=== PATIENT | female | born 1940 | race Caucasian/White ===

== ENCOUNTER 2018-09-17 06:01 | Inpatient (IN) | payer OTHER ==
[2018-09-03 13:21] LABS: HEMATOCRIT 41.8 % (37.0-47.0); HEMOGLOBIN 13.9 gm/dL (12.0-15.0); MCH 31.2 pg (26.0-34.0); MCHC 33.2 g/dL (28.0-37.0); MCV 93.9 fL (80.0-100.0); RBC 4.46 mil/uL (4.20-5.00); RDW 13.5 % (10.5-14.5); URINE BILIRUBIN NEGATIVE (Negative); URINE BLOOD NEGATIVE (Negative); URINE CLARITY CLEAR; URINE COLOR YELLOW; URINE GLUCOSE-RANDOM* NEGATIVE (Negative); URINE KETONES NEGATIVE (Negative); URINE LEUKOCYTES-REFLEX 1+ (Negative); URINE NITRITE-REFLEX NEGATIVE (Negative); URINE PROTEIN (DIPSTICK) NEGATIVE (Negative); URINE UROBILINOGEN 0.2 E.U./dl (0.2-1.0); WBC 6.5 thou/uL (4.0-11.0)
[2018-09-03 13:28] LABS: CASTS None Seen /LPF (None Seen); MUCUS 4-6 Moderate strn/LPF (None Seen); SQUAMOUS 4-10 Moderate /LPF (0-3); URINE RBC 0-2 Rare /HPF (0-2); URINE WBC-REFLEX 0-5 Rare /HPF (0-5)
[2018-09-03 13:29] LABS: BACTERIA-REFLEX 1-9 Few /HPF (None Seen); CRYSTALS None Seen /LPF (None Seen)
[2018-09-03 13:39] LABS: ALBUMIN 3.7 g/dL (3.4-5.0); CALCIUM 9.2 mg/dL (8.5-10.1); CREATININE 0.7 mg/dL (0.6-1.0); POTASSIUM 3.7 mmol/L (3.5-5.1)
[2018-09-03 15:06] LABS: PROTIME 10.8 Seconds (9.3-11.4)
--- NOTE | 2018-09-04 09:38 | EKG ---
[address] [address] ELECTROCARDIOGRAM REPORT Name: ELISAZULY WINSTON Room #: [facility]#: [id number] ������������������ Admission: ������������������ Attend Phys: Portillo Huizar MD Discharge: ������������������ Date of : 44 Report #: [id number] ����������������������������������������������������������������� [id number] THIS REPORT FOR: //name// [facility] Test Date: 2018-09-03 Test Time: 13:13:18 Pat Name: ZULY JOHNSON Department: Room: Gender: F Business Objects Developer: tamika samaniego : 1940 Requested By: Portillo Huizar Order Number: [id number] MD: Angel Caputo Measurements Intervals [employer] Rate: 74 P: 55 IN: 245 QRS: 40 QRSD: 100 T: 27 QT: 415 QTc: 461 Interpretive Statements Sinus rhythm Prolonged IN interval Compared to ECG 03/21/2015 17:25:05 First degree AV block now present T-wave abnormality no longer present Electronically Signed On 09-04-2018 9:38:44 DAIRY ASSOCIATE by Angel Caputo [email or web address] ��������������������������������������������� <ELECTRONICALLY SIGNED> ���������������������������������������� By: Angel Caputo MD, [facility] ��������������������������������������������� 09/04/18 0938 12 12 Angel Caputo MD, [facility] /EPI
[~2018-09-17] VITALS: Ht 162.6 cm; Wt 86.2 kg
--- NOTE | ~2018-09-17 | O ---
[facility] [place] [address] OPERATIVE REPORT Name: ZULY JOHNSON Room #: 150-3 ADM IN M.R.#: [id number] Admission: 09/17/18 ������������������ Attend Phys: Portillo Huizar MD Discharge: ������������������ Date of : 42 Report #: [id number] THIS REPORT FOR: //name// CC: Emily Huizar DATE OF SERVICE: 09/17/2018 PREOPERATIVE DIAGNOSIS: Left hip osteoarthritis. POSTOPERATIVE DIAGNOSIS: Left hip osteoarthritis. PROCEDURE: Left total hip arthroplasty. SURGEON: Portillo Huizar MD. SALES REPRESENTATIVE DOOR TO DOOR: Alisia Birmingham PA-C. INDICATIONS FOR SALES REPRESENTATIVE DOOR TO DOOR: Throughout the case, extensive retraction and manipulation of the hip including dislocation and reduction was required. This was afforded to me by my hotel assistant general manager. ANESTHESIA: General endotracheal. IMPLANTS: [employer] size 9 high offset Synergy press fit stem, a size 50 R3 acetabular cup with one acetabular screw and a size 32 +0 cobalt chrome head. ESTIMATED BLOOD LOSS: 150 mL. COMPLICATIONS: None. SPECIMENS: None. CONDITION UPON LEAVING THE OPERATING ROOM: Stable. INDICATION FOR PROCEDURE: The patient is a 78-year-old female with severe left hip osteoarthritis. She had failed conservative measures for this and after discussion with her, she elected for left total hip arthroplasty. DESCRIPTION OF PROCEDURE: Risks, benefits, alternatives, complications were discussed in detail with the patient including but not limited to risk of anesthesia, risk of damage to nerves, arteries, blood vessels, risk for infection, bleeding, risk for continued hip pain, leg length discrepancy, instability and need for reoperation. Informed consent was obtained from the patient. Left hip was appropriately marked in the preoperative holding area. IV Ancef was given for preoperative antibiotics. She was brought to the [address] [address] OPERATIVE REPORT Name: ZULY JOHNSON Room #: 150-3 [facility] IN M.R.#: [id number] Admission: 09/17/18 ������������������ Attend Phys: Portillo Huizar MD Discharge: ������������������ Date of : 42 Report #: [id number] operating room and placed in the supine position on the operating room table. General endotracheal anesthesia was induced without complication. She was then placed in the right lateral decubitus position with the left hip uppermost. Left hip and lower extremity were then prepped and draped in normal sterile fashion. Timeout was performed properly identifying the patient and procedure as well as the instrumentation and implants. All in the operating room were in agreement. Standard posterior approach to the hip was made with 10 blade through the skin. Dissection was taken down to the fascia with Bovie cautery and a Benitez elevator was used to clean the fascia. Fresh 10 blade was used to make a fascial incision. This was taken proximally and distally with curved Tamayo scissor. Charnley retractor was placed. Trochanteric bursa was taken down with Bovie cautery. Piriformis tendon was identified, tagged and taken down with Bovie cautery. Short external rotators were also taken down with Bovie cautery. Capsulotomy was made and capsule ends were tagged for later repair. Hip was dislocated. There was severe osteoarthritic change of the femoral head. Femoral neck cut was made 1 cm proximal to lesser trochanter based on preoperative templating. Femoral head was removed. Deep acetabular retractors were placed. Labrum was removed sharply. Pulvinar was removed with Bovie cautery. Acetabulum was then sequentially reamed to a size 50, at which point, there was excellent bleeding cancellous bone. A size 49 trial cup was placed, found to have a good fit. Final size 50 R3 acetabular cup was placed and seated. One acetabular screw was placed for backup fixation and a polyethylene liner for 32 head was placed. Attention was then turned to the femur. This was reamed and broached up to a size 9, at which point, the size 9 broach was stable, was trialed with a high offset neck and a 32 +0 head. Hip was reduced, taken through range of motion, found to be stable, found to have equal leg lengths. Hip was dislocated and the broach was removed and final size 9 high offset Synergy press fit stem was placed. This was trialed again with a 32 +0 head. Hip was reduced, taken through range of motion, found to be stable, found to have equal leg lengths. Hip was dislocated one last time and a final size 32 +0 cobalt chrome head was placed. Hip again was reduced, taken through range of motion, found to be stable, found to have equal leg lengths. The limb was thoroughly irrigated with normal saline. Periarticular injection consisting of morphine, ropivacaine, epinephrine and Toradol was placed around the hip joint capsule. A gram of vancomycin was placed deep in the joint capsule and piriformis were repaired with 0 FiberWire. Fascia was closed with 0 Vicryl, skin was closed with 2-0 Vicryl, 3-0 Monocryl. Dermabond and a BROCK dressing was applied. The patient tolerated this procedure well and went to recovery room under care of anesthesia postoperatively. ��������������������������������������������� ���������������������������������������� By: ��������������������������������������������� 1618 1630 Portillo Huizar MD /sandor
[~2018-09-17 06:01] MED LIST: ACETAMINOPHEN-1 EAC1 PO; ACYCLOVIR 400400 MG PO; ANTIVERT25 MG PO; ASPIR 8181 MG PO; BUPROPION XL300 MG PO; CATAPRES0.2 MG PO; CLONAZEPAM 0.50.5 M1 PO; COMPAZINE10 MG PO; COZAAR 25 MG TA25 M1 PO; CRESTOR10 MG PO; DICLOFENAC SODI75 MG PO; EFFEXOR 5050 MG/1 T1 PO; HYDRALAZINE 2525 MG PO; HYDROCHLOROTHIA25 M2 PO; INDERAL 20 MG T20 M1 PO; LEVOTHYROXIN0.025 MG PO; LISINOPRIL20 MG PO; MAGOX 400400 MG PO; MELATONIN3 MG PO; NORVASC5 MG PO; SLEEP AID; SYNTHROID25 MC1 PO; TRAZODONE 150150 M1 PO; TURMERIC500 M2 PO; TYLENOL325 MG PO; VENTOLIN HFA 1818 GM INH; VITAMIN B-121000 MC3 PO; VITAMIN D31000 UNIT PO; WELLBUTRIN SR150 MG PO
[2018-09-17 11:06] VITALS: BP 118/59
[2018-09-17 16:10] VITALS: BP 121/64
--- NOTE | 2018-09-17 16:39 | NUR ---
ASSESSMENT-PT LIVES IN A RANCH STYLE HOME ALONE. SHE HAS SEVERAL FRIENDS THAT ASSIST NEEDED. PT USES A CANE TO GET AROUND AND DOES HER OWN ADLS. PT DRIVES. SHE HAS O2 THRU [facility]. PT TAKES HER OWN BLOOD PRESSURE AND MONITORS THIS CLOSELY. PT HAS HAD HH IN THE PAST BUT CANNOT REMEMBER THE NAME OF THE AGENCY. PT DOES HER OWN COOKING, CLEANING AND LAUNDRY. FRIEND EDITH WHO IS ALSO POA HAS S/W SHIRLEY AT [facility] ABOUT PT GOING THERE FOR REHAB FROM THE HOSPITAL. ONCE THERAPIES HAD EVALUATED PT WILL ASK DC BUNDLING MACHINE OPERATOR TO FAX REFERRAL TO [facility]. PT WOULD LIKE A PVT ROOM. FOLLOWING TO ASSIST WITH DC PLANNING.
[2018-09-17 21:40] VITALS: BP 127/62
[2018-09-18 00:23] VITALS: BP 113/58
[2018-09-18 03:40] VITALS: BP 124/59
--- NOTE | 2018-09-18 04:31 | NUR ---
ASSUMED CARE AT 1900, ASSESSMENT COMPLETED. PT REPORTS SCANT PAIN IN LEFT HIP, STATES SHE MOSTLY HAS DISCOMFORT IN HER BACK FROM LYING IN BED; DENIES NAUSEA OR SOB. SBP HAS BEEN 110-120, HELD HS HYDRALAZINE; ONLY GAVE PROPANOLOL FOR BP PT WAS ALSO ASKING FOR PAIN/SLEEP MEDS AND DID NOT WANT TO LOWER HER BP TOO MUCH. Q4 VS SHOWED BP STABLE IN THIS RANGE OVERNIGHT. BROCK DRESSING C/D/I, NO SIGNS OF BLEEDING. O2 SATS HAVE STAYED AROUND 90%, ENCOURAGED PT LEAVE HER O2 ON WHILE AWAKE AND TO TCDB FREQUENTLY. EDUCATED PT ON QUAD MUSCLES EXERCISES AND ROM IN THE ANKLE/FOOT WELL HER OTHER LEG. PT REPORTED NOT VOIDING SINCE BEFORE SURGERY; BLADDER SCAN AT 2200 SHOWED >450 ML; PLACED PT ON FRACTURE ULLOA AND ENCOURAGED HER TO ATTEMPT VOIDING NORMALLY SHE HADN'T TRIED THIS YET. SHE WAS UNABLE TO VOID; PER ORDERS, PLACED A PORTILLO AT 2350, WHICH HAD >500 ML, INFLATED BALLOON AND LEFT HANGING TO DD. NO OTHER CONCERNS, WILL CONTINUE TO MONITOR.
[2018-09-18 05:00] LABS: HEMATOCRIT 33.6 % (37.0-47.0); HEMOGLOBIN 11.4 gm/dL (12.0-15.0); MCH 32.3 pg (26.0-34.0); RBC 3.54 mil/uL (4.20-5.00); RDW 13.9 % (10.5-14.5); WBC 9.4 thou/uL (4.0-11.0)
--- NOTE | 2018-09-18 08:12 | NUR ---
ASSESMENT COMPLETED. VSS. A/O. PAIN MANAGED BY MEDS ORDERED. NO NTOED SOA. NO NV. BROCK DRESSING CDI. MEDS GIVEN ORDERED TOELRATED WELL. HAS NOT BEEN OUT OF BED YET SINCE SURGERY- TTWB. HIP PREC. IN PLACE. WILL CONT. TO MONITOR.
[2018-09-18 08:15] VITALS: BP 136/64
--- NOTE | 2018-09-18 11:57 | NUR ---
PATIENT TRANSFERRED FROM [facility], REPORT FROM ARIEL/RN. PATIENT ALERT AND ORIENTED X 4. PATIENT UP WITH ASSIST X 1 WITH GAIT BELT AND WALKER. PATIENT STATES PAIN NOT BAD, 4-12/05, PATIENT HAD HYDROCODONE THIS AM. BROCK DRESSING TO LEFT HIP AREA, C/D/I. WBA TOLERATED, ALSO ICE CHIPS USED. O2 AT 3 LITERS/NC, DUE TO SATS DROPPING PER ARIEL/RN. PATIENT HAS RIGHT AC WITH D51/2 NS AT 100CC/HR. PORTILLO IN PLACE, DUE TO RETAINING. WILL CONTINUE TO MONITOR.
--- NOTE | 2018-09-18 12:10 | NUR ---
DCP FAXED REFERRAL TO [facility] LEFT MSG WITH [facility] IN ADM. THAT PT/OT NOTES NOT AVAILABLE YET WILL FAX LATER TODAY. DCP TO FOLLOW.
[2018-09-18 12:13] VITALS: BP 126/60
[2018-09-18 18:52] VITALS: BP 117/50
--- NOTE | 2018-09-19 03:45 | NUR ---
ASSUMED CARE AT START OF SHIFT PT SITTING ON SIDE OF BED VISITING WITH FRIEND, PT RECENTLY MEDICATED WITH PAIN MEDICATION AND COMFORATALE . DISCUSSSED PLAN OF CARE AND VERBALIZED UNDERSTANDING. BROCK DRESSING DRY AND INTACT. WILL CONITINUE WITH PRESENT PLAN OF CAREAND REPORT CHANGES OR ABNORMAL FINDINGS.
[2018-09-19 06:54] LABS: HEMATOCRIT 32.8 % (37.0-47.0); HEMOGLOBIN 10.7 gm/dL (12.0-15.0); MCHC 32.5 g/dL (28.0-37.0); MCV 95.6 fL (80.0-100.0); RBC 3.44 mil/uL (4.20-5.00); RDW 13.9 % (10.5-14.5); WBC 7.2 thou/uL (4.0-11.0)
[2018-09-19 07:40] VITALS: BP 112/51
--- NOTE | 2018-09-19 09:46 | NUR ---
SW reviewed chart and spoke with nursing. Pt was [facility] to [facility] from and is progressing towards goals for discharge. Plan is for pt to d/c to [facility] when medically stable. Anticipate discharge today or tomorrow. MAXIMILIANO is following to assist as needed with discharge planning.
[2018-09-19] MEDS ORDERED: TRI-BUFFERED A325 M1 PO (13:05)
[2018-09-19] MEDS ORDERED: NEURONTIN 300300 M1 PO (13:05)
--- NOTE | 2018-09-19 13:50 | NUR ---
DISCHARGE ORDERS RECEIVED. PATIENT DISCHARGING TO [facility] SATURDAY. CHART COPIED PER WORKFORCE STAFFING ADVISOR. ORDERS FAXED TO SHIRLEY, [facility] ADMISSIONS, VERIFIED RECEIVED. WHEELCHAIR TRANSPORTATION SET UP PER SHIRLEY AT [facility] FOR SATURDAY MORNING, 1100 HOURS. FAMILY NOTIFIED. UNIT RN NOTIFIED AND NUMBER FOR REPORT PROVIDED. UNIT CM/SW AWARE. [facility] CONTACT NUMBER FOR REPORT IS [phone]
[2018-09-19 19:32] VITALS: BP 124/51
--- NOTE | 2018-09-19 19:51 | NUR ---
ASSUMED CARE OF PATIENT AT 0715, PATIENT ALERT AND ORIENTED X 4. UP WITH ASSIST X 1 WITH WALKER. PATIENT C/O PAIN WITH LEFT HIP AREA. OXYCODONE GIVEN X 2 THIS SHIFT. PATIENT HAS BROCK DRESSING IN PLACE, C/D/I. PORTILLO CATHETER REMOVED, NOTIFIED KARIS HUERTA/TRAVEL CLERK, WILL START FLOMAX TONIGHT AND IN AM, PATIENT HAS NOT VOIDED SINCE CATHETER OUT, NIGHT NURSE WILL BLADDER SCAN. PATIENT STATED SHE WAS NOT URINATING WELL PRIOR TO SURGERY. PAIENT WILL DISCHARGE TO [facility] TOMORROW. WILL CONTINUE TO MONITOR. PATIENT HAS O2 AT 3 LITERS/NC IN LACE SHE WEARS OXYGEN AT NIGHT AT HOME.
--- NOTE | 2018-09-20 05:39 | NUR ---
PATIENT ALERT AND ORIENTED X4. UP WITH ONE ASSIST AND ADLIB TO THE BATHROOM. DRESSING TO LEFT HIP DRY AND INTACT. PATIENT VOIDED APROX. 300ML AT BEGINNING OF SHIFT AND X2 ON HER OWN DURING THE NIGHT. BLADDER SCAN THIS AM AT APPROX. 0530 WAS 161. PATIENT STATED THAT SHE FELT LIKE SHE WAS EMPTYING HER BLADDER. SOME ANXIETY AT TIMES. GIVEN AMBIEN UPON REQUEST AND SLEPT WELL DURING THE NIGHT. NO REQUEST FOR PAIN MEDICATION AT THIS TIME. WILL MONITOR.
[2018-09-20 06:17] LABS: HEMATOCRIT 30.6 % (37.0-47.0); HEMOGLOBIN 10.2 gm/dL (12.0-15.0); MCH 31.9 pg (26.0-34.0); MCHC 33.2 g/dL (28.0-37.0); RBC 3.19 mil/uL (4.20-5.00); RDW 13.6 % (10.5-14.5)
[2018-09-20 08:35] VITALS: BP 128/63
[2018-09-20 08:46] VITALS: BP 128/63
--- NOTE | 2018-09-20 11:05 | NUR ---
ASSUMED PATIENT AND CARES AT 0715, PATIENT LYING IN BED A&OX4, RECEIVED PRN OXYCODONE PRIOR TO ARRIVAL, PAIN RATE AT THIS TIME 01/05, DRESSING TO LEFT HIP C/D/I, PILAR HOSE TO BLE IN PLACE, O2@2L/NC IN PLACE, PERSONAL BELONGINGS AND BARBI LIGHT IN REACH, WILL CONTINUE TO MONITOR
--- NOTE | 2018-09-20 14:46 | NUR ---
PATIENT DISCHARGED AT 1124 FROM SICU 220 TO [facility], PATIENT REMAINS STABLE, NO C/O PAIN OR DISCOMFORT, PAPERWORK GIVEN TO TRANSPORT, PERSONAL BELONGINGS WITH PATIENT, PHONE DOCUMENT DESIGN SPECIALIST LEFT ON UNIT, PATIENT DAUGHTER RETURNED TO UNIT TO OBTAIN THE DOCUMENT DESIGN SPECIALIST, NURSE CALLED REPORT TO [facility]
== END 2018-09-20 11:15 | DRG 470 ==
LOC: SICU 06:01 → TBA 06:01 → 4E 06:01 → PRE 06:17 → 4E 17:02 → SICU 09-18 11:34
PROVIDERS: ADMIT Orthopaedic Surgery
PROC: 0SRB01A Replacement of Left Hip Joint with Metal Synthetic Substitute, Uncemented, Open Approach (ICD-10-PCS; principal; 2018-09-17)
DX: M16.12 Unilateral primary osteoarthritis, left hip (principal); Z79.82 Long term (current) use of aspirin; Z79.899 Other long term (current) drug therapy
CPT/HCPCS: 10783; 15002; 50010; 50101; 50382; 50414; 53000; 53078; 53367; 54118; 56524; 56527; 56528; 56530; 57095; 57103; 62110; 62900; 70005

== ENCOUNTER 2020-07-16 18:47 | Inpatient (IN) | payer OTHER ==
[~2020-07-16] VITALS: Ht 162.6 cm; Wt 83.0 kg
--- NOTE | ~2020-07-16 | EMS ---
[address] [address] EMS Patient Care Report Name: ZULY JOHNSON Room #: 170-8 ADM IN M.R.#: [id number] Admission: 07/16/20 Attend Phys: Jacques Leyva MD Discharge: Date of : 42 Report #: [id number] THIS REPORT FOR: //name// Report Transmitted: 07/17/2020 08:04 EMS Care Summary [facility] MED-ACT Incident [id number] @ 07/16/2020 18:07 Incident Location [address] [place] [address] Patient ZULY JOHNSON Female, 79 Years 1940 Patient Address [address] [place] [address] Patient History Hypertension (HTN), Patient Allergies Sulfa, Patient Medications Propranolol, Clonidine, Topiramate, Meloxicam, ASA, Hydrochlorothiazide (Hctz), Hydralazine, Levothyroxine, Amlodipine, Losartan, Chief Complaint Nausea Disposition Transported No Lights/[place] Dispatch Reason Sick Person Transported To [facility] Narrative [id number] and E23 arrived on scene to find a 79 year old female complaining of [address] [address] EMS Patient Care Report Name: ZULY JOHNSON Room #: 170-8 ADM IN Maryjane#: [id number] Admission: 07/16/20 Attend Phys: Jacques Leyva MD Discharge: Date of : 42 Report #: [id number] nausea and vomiting with diarrhea. The patient stated that for the past 4 days, she had been unable to keep food down or in. Additionally, the patient informed EMS crews that she had abdominal pain. Although no rigidity was noted with palpation, the patient complained of a bloated feeling and stated that she felt her "belly was filled with air". The patient stated that she wanted to go to the hospital for further evaluation. The patient was ambulatory into the ambulance with no assistance. While en route to the hospital, the patient was placed on a 3 lead EKG which showed that she was in a sinus rhythm with occasional PVC beats. The patient denied any chest pain. When asked about medications and any recent medication changes, the patient indicated that she recently stopped taking Oxycodone as she ran out approximately one week prior and the pharmacy would not deliver. As such, the patient stated that she had been taking the medication for about the past 6 months and then suddenly stopped due to a lack of supply. The patient denied any blood in her stool or vomit, and denied any other abnormal color changes to stool. Upon arrival at [facility], EMS gave report [id number] to ED staff and patient care was transferred at that time. Initial Vitals @18:22P: 73,R: 20,BP: 192/60,Pain: 2/10,GCS: 15,SpO2: 97,Revised Trauma: 12, @18:31P: 69,R: 18,Pain: 2/10,GCS: 15,SpO2: 94, @18:21P: 80,R: 20,BP: 183/98,Pain: 2/10,GCS: 15,Temp: 98.3F,SpO2: 96,Revised Trauma: 12, @18:29P: 70,R: 20,BP: 161/83,Pain: 2/10,GCS: 15,SpO2: 96,Revised Trauma: 12, @18:41P: 70,R: 22,BP: 155/88,GCS: 15,Glucose: 112,SpO2: 96,Revised Trauma: 12, Assessments @18:35MENTAL:SKIN:HEENT:Eyes: Right Pupil: 4-mm,Eyes: Left Pupil: 4-mm,LUNG SOUNDS:Right Upper: Tenderness,ABDOMEN:Right Upper: Tenderness,PELVIS//GI:EXTREMITIES:PULSE:NEURO: Impression Nausea Procedures @18:31General Comments@18:30Ondansetron - 4 Milligrams (mg) - OralResponse: Improved@PTASurgical Mask on PatientResponse: Unchanged@18:303-Lead ECGResponse: UnchangedSucceeded Timeline COOK BOX FILLER,Surgical Mask on Patient,Response: Unchanged 18:05,Call Received 18:05,Psap Call [address] [place] [address] EMS Patient Care Report Name: ELISAZULY WINSTON Aidan Room #: 170-8 ADM IN M.R.#: [id number] Admission: 07/16/20 Attend Phys: Jacques Leyva MD Discharge: Date of : 42 Report #: [id number] 18:07,Dispatched 18:07,En Route 18:14,On Scene 18:17,At Patient 18:21,BP: 183/98 M,PULSE: 80,RR: 20 R,SPO2: 96 Ox,ETCO2: ,BG: ,PAIN: 2,GCS: 15, 18:22,BP: 192/60 M,PULSE: 73,RR: 20 R,SPO2: 97 Ox,ETCO2: ,BG: ,PAIN: 2,GCS: 15, 18:29,BP: 161/83 M,PULSE: 70,RR: 20 R,SPO2: 96 Ox,ETCO2: ,BG: ,PAIN: 2,GCS: 15, 18:30,Ondansetron - 4 Milligrams (mg) - Oral,Response: Improved 18:30,3-Lead ECG,Response: UnchangedSucceeded, 18:30,Depart Scene 18:31,General Comments, 18:31,BP: / M,PULSE: 69,RR: 18 R,SPO2: 94 Ox,ETCO2: ,BG: ,PAIN: 2,GCS: 15, 18:41,BP: 155/88 M,PULSE: 70,RR: 22 R,SPO2: 96 Ox,ETCO2: ,B,PAIN: ,GCS: 15, 18:42,At Destination 19:05,Call Closed Disclaimer v1.1 Copyright 2020 [employer] This EMS Care Summary contains data elements from the applicable legal record (which may be displayed differently). It is designed to provide pertinent information for the following purposes: continuity of care, clinical quality, and state data reporting. The complete legal record is available to ED staff and administrators of the receiving hospital in [employer]'s Patient Tracker. All data is provided "as is."
[~2020-07-16 18:47] MED LIST changes: +NEURONTIN 300300 M1 PO; +TRI-BUFFERED A325 M1 PO
[2020-07-16 18:48] VITALS: BP 173/81
[2020-07-16] MEDS ORDERED: TOPAMAX100 MG PO (18:53)
[2020-07-16] MEDS ORDERED: MELOXICAM7.5 MG PO (18:54)
[2020-07-16] MEDS ORDERED: NYSTATIN1 EA10 TOP (18:57)
[2020-07-16 19:36] LABS: ABSOLUTE NEUTROPHILS 7.6 thou/uL (1.4-8.2); BASOPHILS 0.8 % (0.0-2.0); EOSINOPHILS 0.6 % (0.0-3.0); HEMATOCRIT 42.1 % (37.0-47.0); HEMOGLOBIN 14.2 gm/dL (12.0-15.0); LYMPHOCYTES 15.5 % (24.0-44.0); MCH 30.4 pg (26.0-34.0); MCHC 33.8 g/dL (28.0-37.0); MCV 89.8 fL (80.0-100.0); MONOCYTES 7.6 % (1.0-8.0); PLATELET COUNT 231 thou/uL (150-400); POLYS 75.5 % (36.0-66.0); RBC 4.68 mil/uL (4.20-5.00); RDW 14.5 % (10.5-14.5); WBC 10.1 thou/uL (4.0-11.0)
[2020-07-16 19:50] LABS: ALBUMIN 3.9 g/dL (3.4-5.0); ANION GAP 13 mmol/L (7-16); BUN 19 mg/dL (7-18); CALCIUM 9.3 mg/dL (8.5-10.1); CHLORIDE 99 mmol/L (98-107); CO2 24 mmol/L (21-32); CREATININE 1.2 mg/dL (0.6-1.0); DIRECT BILIRUBIN 0.1 mg/dL (<0.1-0.2); GLUCOSE 105 mg/dL (74-106); SGOT 28 U/L (15-37); SGPT 28 U/L (14-59); SODIUM 136 mmol/L (136-145); TOTAL BILIRUBIN 0.6 mg/dL (0.2-1.0); TOTAL PROTEIN 7.2 g/dL (6.4-8.2); TROPONIN-I <0.06 ng/mL (<0.06)
[2020-07-16 19:51] LABS: POTASSIUM 2.5 mmol/L (3.5-5.1)
[2020-07-16 19:54] LABS: URINE BILIRUBIN NEGATIVE (Negative); URINE BLOOD NEGATIVE (Negative); URINE CLARITY CLEAR; URINE COLOR YELLOW; URINE GLUCOSE-RANDOM* NEGATIVE (Negative); URINE KETONES TRACE (Negative); URINE LEUKOCYTES-REFLEX 2+ (Negative); URINE NITRITE-REFLEX NEGATIVE (Negative); URINE PROTEIN (DIPSTICK) NEGATIVE (Negative); URINE UROBILINOGEN 0.2 E.U./dl (0.2-1.0)
[2020-07-16 20:06] LABS: HYALINE CASTS 0-3 Few /LPF (None Seen); SQUAMOUS 0-3 Few /LPF (0-3); URINE RBC None Seen /HPF (0-2)
[2020-07-16 20:07] LABS: BACTERIA-REFLEX 1-9 Few /HPF (None Seen); CRYSTALS None Seen /LPF (None Seen); URINE WBC-REFLEX 6-15 Few /HPF (0-5)
[2020-07-16 22:18] VITALS: BP 173/81
--- NOTE | 2020-07-17 00:23 | NUR ---
Pharmacy called to verify potassium and melatonin.
--- NOTE | 2020-07-17 09:37 | NUR ---
PT CLEARED BY SUZANNE MARQUEZ RN, THIS MORNING AT 0935.
[2020-07-17 10:12] VITALS: BP 175/77
[2020-07-17 10:29] VITALS: BP 129/53
[2020-07-17 10:55] VITALS: BP 140/55
[2020-07-17 14:47] VITALS: BP 152/64
[2020-07-17 16:23] LABS: HEMATOCRIT 38.8 % (37.0-47.0); MCH 30.2 pg (26.0-34.0); MCHC 33.4 g/dL (28.0-37.0); MCV 90.3 fL (80.0-100.0); RBC 4.3 mil/uL (4.20-5.00); RDW 14.4 % (10.5-14.5); WBC 7.8 thou/uL (4.0-11.0)
[2020-07-17 16:52] LABS: CALCIUM 8.3 mg/dL (8.5-10.1)
[2020-07-17 17:00] LABS: POTASSIUM 2.5 mmol/L (3.5-5.1)
[2020-07-17 19:39] VITALS: BP 168/70
--- NOTE | 2020-07-17 20:02 | NUR ---
Admitted pt. to the floor at 1030. Pt. was anxious but cooperative. Pt. used the bathroom frequently in the first few hours and complained of blood in urine, this was observed and reported to Dr. Lyeva. No orders given. Critical lab value called in the afternoon of low potassium 2.5. Dr. Leyva notified at 1710, stated he would put in corrective measures, no orders seen at end of shift. Xanax order given for pt. anxiety. Fall precautions in place.
[2020-07-18 04:48] VITALS: BP 164/73
[2020-07-18 06:27] LABS: MAGNESIUM 1.9 mg/dL (1.8-2.4)
[2020-07-18 06:42] LABS: POTASSIUM 2.8 mmol/L (3.5-5.1)
--- NOTE | 2020-07-18 07:44 | EKG ---
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: sanjuana : 1940 Requested By: Adelaide Quan Order Number: [id number] MD: Angel Caputo Measurements Intervals [place] Rate: 69 P: 30 MO: 237 QRS: 63 QRSD: 102 T: 63 QT: 493 QTc: 529 Interpretive Statements Sinus rhythm Prolonged MO interval Prolonged QT interval Compared to ECG 09/03/2018 13:13:18 Prolonged QT interval now present Electronically Signed On 07-18-2020 7:44:00 COLORIST by Angel Caputo [email or web address] <ELECTRONICALLY SIGNED> By: Angel Caputo MD, [facility] 07/18/20 0744 41 41 Angel Caputo MD, FACC /EPI
--- NOTE | 2020-07-18 07:52 | NUR ---
Assumed pt care at 1900. A/OX4, with some forgetfulness noted. VSS. Denies pain,N/V,no diarrhea this shift,pending collection stool sample for cdiff. Special contact isolation in place. Pt has been NPO since midnight,IVF infusing via RFA w/o any problems. Fall precautions in place. Oncoming nurse updated.
[2020-07-18 08:35] VITALS: BP 181/85; BP 184/83
[2020-07-18 09:30] VITALS: BP 154/73
--- NOTE | 2020-07-18 13:32 | NUR ---
Received awake on bed. Due medications given as prescribed. On nothing per orem- pt informed and aware; mouth care done. On telemetry; no complains and signs of chest pain, crushing sensation and heaviness. On O2 at 2lpm via nasal cannula. Continent of bowel and bladder, able to use bedside commode using walker, gait belt on standby assist. With Ns at 75cc/hr, infusing well at R FA; on IV antibiotics. Falls bundle in place. Maintained on isolation, rule out Cdiff; a/w stool sample. No nausea, no vomiting and no abdominal pain noted. With excoriation under breasts- with nystatin powder prescribed. To continue monitoring patient. Able to have a bowel movement today; specimen sent. Pt feeling anxious- PRN medication given as prescribed. Pt with low potassium- electrolyte protocol prescribed, ongoing 1st unit of KCl given as prescribed, for another unit afterwards- Dr Leyva prescribed additional 2 units- verified with Dr Leyva- he said pt to have 3 units of KCL IV bags today. Pt brought down for EGD via bed- report given to pre-op nurse. Back to room at 1340- transferred safely; vital signs stable post procedure. To continue monitoring patient.
--- NOTE | 2020-07-18 14:45 | NUR ---
PT ADMITTED RELATED TO N/V, UTI. CM REVIEWED CHART AND SPOKE WITH CARE TEAM. CM CALLED AND SPOKE WITH PT OVER THE PHONE THIS DAY. PT APPEARED TO BE A&O X4. CM ROLE INTRODUCED. PT INDICATED SHE RESIDES ALONE IN AN APARTMENT WITH 7 STEPS TO ENTER THR BULIDING THEN NO STEPS INSIDE. PT INDICATED SHE HAS A CANE FOR USE AT HOME. PT INDICATED NO HH HX. PT CONFIRMED THAT SHE HAD BEEN SKILLED AT [facility] IN THE PAST. PT INDICATED THAT HER PCP IS DR. YUMIKO COYLE. PT IS RECEPTIVE TO POST ACUTE CARE STAY IF NEEDED UPON DC. PT AND OT ORDERED. CM FOLLOWING REGARDING DC PLANNING. PT TO HAVE EGD THIS DAY.
[2020-07-18 15:00] VITALS: BP 137/65
[2020-07-18 20:10] VITALS: BP 186/95
[2020-07-19 03:44] LABS: HEMATOCRIT 39.3 % (37.0-47.0); HEMOGLOBIN 13.1 gm/dL (12.0-15.0); MCH 30.3 pg (26.0-34.0); MCHC 33.3 g/dL (28.0-37.0); MCV 90.8 fL (80.0-100.0); RBC 4.33 mil/uL (4.20-5.00); RDW 14.9 % (10.5-14.5); WBC 8.5 thou/uL (4.0-11.0)
[2020-07-19 04:28] LABS: ALBUMIN 3.2 g/dL (3.4-5.0); CALCIUM 8.4 mg/dL (8.5-10.1); CREATININE 0.7 mg/dL (0.6-1.0); MAGNESIUM 1.8 mg/dL (1.8-2.4); POTASSIUM 3.3 mmol/L (3.5-5.1); TOTAL BILIRUBIN 0.4 mg/dL (0.2-1.0); TOTAL PROTEIN 5.8 g/dL (6.4-8.2)
--- NOTE | 2020-07-19 07:02 | NUR ---
Pt. rested very little during the night when checked on during frequent rounds. Xanax given for anxiety (see emar) with some relief noted. Has been up frequently to the bathroom with assist of one and gait belt. Bed alarm is on.
[2020-07-19 09:23] VITALS: BP 179/78
[2020-07-19 14:02] VITALS: BP 186/93
--- NOTE | 2020-07-19 14:29 | NUR ---
CM FOLLOWED UP WI PT THIS DAY. SHE INDICATED THAT SHE IS AGREEABLE THAT SHE FEELS SAFE TO RETURN HOME ONCE MEDICALLY STABLE AND THAT SHE IS RECEPTIVE TO SOME HH SERVICES. PT INDICATED NO PREFERENCE FOR PROVIDER. CM AND DC BOILER FIREMAN TO FIND A PROVIDER FOR SERVICES FOR POSSIBLE DC TOMORROW. CM TO FOLLOW INDICATED WITH DC PLANNING.
--- NOTE | 2020-07-19 15:03 | NUR ---
Received awake on bed. Due medications given as prescribed, able to swallow meds w/o difficulty. On O2 at 2lpm via nasal cannula. On telemetry, no complains and signs of chest pain, crushing sensation and heavines. On full liquid diet- tolerating well, encouraged and assisted in eating and drinking; no nausea, no vomiting and no abdominal pain noted. Continent of bowel and bladder, able to go to the toilet using gait belt, walker and standby assist. With NS at 75cc/hr, infusing well at R FA; on IV antibiotics as well. With excoriation under her breasts- nystatin powder applied to area. Maintained on isolation due to Cdiff. To continue monitoring patient. Pt complained of feeling anxious- PRN medications given as prescribed. Seen and examined by PT- able to sit on the chair. Pt's daughter called this PM, concerned about her mom's memory and unable to sleep- Dr Plata informed and physician responded that she'll address. To continue monitoring patient.
--- NOTE | 2020-07-19 16:06 | PATH ---
[facility] [place] [address] PATHOLOGY RPT PROCEDURE Name: ZULY PATTON Aidan Room #: 460-P ADM IN M.R.#: [id number] Admission: 07/16/20 Date of : 44 Discharge: Report #: [id number] Path Case #: [id number] LCA Accession Number: [id number] . 01 Material submitted: . PART A: duodenum - DUODENAL BIOPSY R/O SPURE PART B: stomach - GASTRIC BIOPSY R/O H. PYLORI . 01 Clinical history: . DUODENITIS, UTI, HYPOKALEMIA, FOOD INTOLERENCE, GASTRIC ULCERS, GASTRITIS . 02 Diagnosis: A. Small bowel mucosa, duodenum rule out sprue, endoscopic biopsy: - No significant diagnostic abnormalities present. - Negative for villous blunting or increase in intraepithelial lymphocytes. . B. Gastric mucosa, rule out H. pylori, endoscopic biopsy: - Mild to moderate reactive gastropathy with fibrotic lamina propria and foci of subepithelial hemorrhage. - Negative for intestinal metaplasia or atrophy. - Negative for Helicobacter pylori (properly controlled immunohistochemical stain performed). (IUV/db; 07/19/2020) LBQ 07/19/2020 1333 Local . 02 Electronically signed: . Mary Weaver MD, Pathologist NPI- [id number] . 01 Gross description: . A. The specimen is received in formalin, labeled "Zuly Patton, duodenal biopsy, R/O sprue". Received are four segments of pale vizcaino soft tissue ranging in size from 0.3 to 0.5 cm in maximum dimensions. The specimen is submitted entirely in cassette A1. . B. The specimen is received in formalin, labeled "Zuly Patton, gastric biopsy, R/O H. pylori". Received are four segments of pale vizcaino soft tissue ranging in size from 0.2 to 0.6 cm in maximum dimensions. The specimen is submitted entirely in cassette B1. (CAA; 07/18/2020) QA/QA 07/18/2020 1737 Local . 02 Pathologist provided ICD-10: K31.9 . 02 CPT . [address] [address] PATHOLOGY RPT PROCEDURE Name: ELISAERICACARMELLAZULY Bermudez Room #: 460-P [facility] IN M.R.#: [id number] Admission: 07/16/20 Date of : 44 Discharge: Report #: [id number] Path Case #: [id number], [id number] Specimen Comment: A courtesy copy of this report has been sent to [phone] Specimen Comment: [phone], Specimen Comment: Report sent to ,DR BERNABE / DR PERALTA Performed at: [address] [facility] [address], [place], [place] [id number] MD Daquan Turpin MD Phone: [phone] Performed at: [address] [facility] [address] [id number] MD Mary Weaver MD Phone: [phone]
--- NOTE | 2020-07-19 16:39 | NUR ---
FAXED REFERRAL TO [facility] HH SPOKE WITH SOLOMON SHE WILL HAVE INTAKE REVIEW. DP TO FOLLOW.
[2020-07-19 19:44] VITALS: BP 155/80
--- NOTE | 2020-07-20 03:08 | NUR ---
PT CARE ASSUMED WITH PT SLEEPING.PT IS A/O X4.PT IS UP WITH X1 ASSIST TO BATHROOM WITH WALKER AND GAIT BELT.PT IS ON 2L OF O2 VIAL NC.PT IS ON CDIFF CONTACT PRECAUTION PENDING RESULTS.C/O ANXIETY AND GIVEN XANAX.WILL CONTINUE TO MONITOR
--- NOTE | 2020-07-20 08:27 | P ---
[facility] [place] [address] [place] [address] PROCEDURE REPORT Name: ZULY JOHNSON Room #: 460-P ADM IN M.R.#: [id number] Admission: 07/16/20 Attend Phys: Jacques Leyva MD Discharge: Date of : 42 Report #: [id number] THIS REPORT FOR: cc: Portillo Huizar MD, Scott M. MD McElnyJoseph rico MD ~ DATE OF SERVICE: 07/18/2020 PROCEDURE PERFORMED: Upper endoscopy with biopsies. HISTORY OF PRESENT ILLNESS: The patient is a 79-year-old female with several days of nausea, vomiting, diarrhea, abdominal pain, was taking NSAIDs on a regular basis. CT scan of the abdomen and pelvis was performed on admission showing findings consistent with distal gastritis, duodenitis mucosal thickening of the pylorus as well as the first and second portions of the duodenum and surrounding inflammation soft tissue stranding, nonspecific enhancement and thickening of the gallbladder as well. Plan is for upper endoscopy. DESCRIPTION OF PROCEDURE: The risks and benefits of the procedure were explained to the patient, those risks including but not limited to bleeding, perforation and the risk of sedation. She understood these risks and gave informed consent. Sedation was given using propofol per anesthesia. Next, using a standard Olympus upper endoscope, the scope was placed in the patient's mouth and advanced under direct vision through the esophagus, stomach and into the second portion of the duodenum. The larynx was normal in appearance. The upper and mid esophagus was normal. In the distal esophagus, grade B erosive esophagitis was noted. Overall, the gastric fundus was normal; however, in the body and antrum, a diffuse gastritis was noted as well as multiple clean white based ulcerations primarily in the antrum. No evidence of bleeding. Ulcers were approximately 3-5 mm in size. Biopsies were obtained to rule out H. pylori. The pylorus was normal and patent. The duodenal bulb, first and second portion were all normal. The major papilla was identified and normal in appearance. Random biopsies were also obtained in the duodenum to rule out the possibility of celiac sprue. The scope was then withdrawn and the procedure terminated. The patient tolerated the procedure well. IMPRESSION: 1. Gastritis with multiple clean white based ulcers. 2. Grade B erosive esophagitis. 3. Otherwise, normal upper endoscopy. RECOMMENDATIONS: 1. Await biopsy results. 2. Continue PPI therapy. 3. We will switch Carafate to a suspension. [address] [address] PROCEDURE REPORT Name: ZULY JOHNSON Room #: 460-P [facility] IN M.R.#: [id number] Admission: 07/16/20 Attend Phys: Jacques Leyva MD Discharge: Date of : 42 Report #: [id number] 4. Await stool studies. 5. Continue supportive care and advance diet as tolerated. Thank you for allowing me to participate in her care. <ELECTRONICALLY SIGNED> By: Joseph Jacques MD 07/20/20 0827 1314 1911 Joseph Jacques MD /nt
--- NOTE | 2020-07-20 08:28 | HC ---
[facility] [place] [address] [address] [place] [address] CONSULTATION Name: ZULY JOHNSON Room #: 460-P ADM IN M.R.#: [id number] Admission: 07/16/20 Attend Phys: Jacques Leyva MD Discharge: Date of : 42 Report #: [id number] THIS REPORT FOR: cc: Portillo Huizar MD, Scott M. MD McElhinney, Christian C. MD ~ DATE OF SERVICE: 07/17/2020 HISTORY OF PRESENT ILLNESS: The patient is a 79-year-old female who reports approximately 4-day history of nausea, vomiting and diarrhea, prior to this was feeling well in general. She states she has lost 18 pounds in the last week due to her symptoms, not able to keep anything down including liquids, was evaluated in the Emergency Room last evening, underwent a CT scan of the abdomen and pelvis on admission, which showed distal gastritis, duodenitis with inflammation mucosal thickening of the pylorus as well as the first and second portions of the duodenum with surrounding inflammation soft tissue stranding, nonspecific enhancement and thickening of the gallbladder also noted, otherwise CT was negative. The patient does take aspirin as well as meloxicam on a daily basis in the past, was taking diclofenac, but not recently. She denies any previous history of peptic ulcer disease or upper endoscopy. She denies any heartburn symptoms in general other than mild at times she was taking Tums very rarely. She denies any dysphagia or odynophagia. No hematemesis or melanotic stools. She states her bowel movements other than the diarrhea that have been normal previously. Last colonoscopy, she states was 2 years ago and reportedly negative. She was having chills at home, no fevers, and feeling flushed at times as well as intermittent shortness of breath. Since admission, she has been placed on IV fluids, antiemetics, PPI therapy. She is feeling somewhat better today. She is able to keep liquids down at this time. She denies any current chest pain, shortness of breath, cough or sputum production. 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 ALLERGIES: SULFA. REVIEW OF SYSTEMS: As per HPI. MEDICATIONS ON ADMISSION: Aspirin 325 mg, Neurontin, melatonin, Topamax, meloxicam, nystatin, Crestor, Inderal, Voltaren, hydrochlorothiazide, Cozaar, hydralazine, vitamin D3, vitamin B12, magnesium, Turmeric and Synthroid. SOCIAL HISTORY: Denies any tobacco use at this time. She consumes [address] [address] CONSULTATION Name: ZULY JOHNSON Room #: 460-P [facility] IN M.R.#: [id number] Admission: 07/16/20 Attend Phys: Jacques Leyva MD Discharge: Date of : 42 Report #: [id number] approximately 2 units of alcohol on a daily basis. FAMILY HISTORY: Negative for colon cancer. PHYSICAL EXAMINATION: VITAL SIGNS: Temperature is 98.6, pulse 72, blood pressure 140/55, respiratory rate is 18. GENERAL: She is alert and oriented x 3, in no acute distress. HEENT: Sclerae nonicteric, oropharynx clear. NECK: Supple without lymphadenopathy. CARDIOVASCULAR: Regular rate and rhythm. CHEST: Clear to auscultation bilaterally. ABDOMEN: Soft, nondistended. She is mildly tender to palpation in the midepigastrium. Normoactive bowel sounds. EXTREMITIES: No cyanosis, clubbing or edema. LABORATORY DATA: Sodium 136, potassium 2.5, chloride 99, bicarbonate 24, BUN 19, creatinine is 1.2, glucose 105. AST 28, total bilirubin 0.6, magnesium 1.9, alkaline phosphatase 71, ALT 28, total protein 7.2, albumin 3.9. Lactic acid level 0.9. WBC is 10.1, hemoglobin 14.2, platelet count is 231. Stool has been ordered for stool cultures, H. pylori antibody also ordered. UA showing 5-6 white cells, bacteria 1-9, mucus 4-6. The patient has been started on Zosyn and Flagyl. ASSESSMENT AND PLAN: Nausea, vomiting, diarrhea. CT showing thickening of her stomach as well as the duodenum, suspect the patient may have peptic ulcer disease due to NSAIDs, which she has been taking for a long period of time, also consider the possibility of a recent gastroenteritis with her symptoms of nausea, vomiting and diarrhea. Agree with PPI therapy, which has already been started. We will add Carafate at this time. Hold NSAIDs at this time. We will plan on upper endoscopy tomorrow for further evaluation of CT findings. Of note, she did have a possible thickening of her gallbladder. She does report some mild right upper quadrant abdominal pain at times, may need to consider a PIPIDA scan if no improvement with above therapy. We will continue clear liquids today as tolerated. Agree with antibiotics and stool studies, which have been ordered. I will make further recommendations tomorrow after endoscopy. Thank you for allowing me to participate in her care. <ELECTRONICALLY SIGNED> By: Joseph Jacques MD 07/20/20 0828 1218 16 Joseph Jacques MD /nt
[2020-07-20 09:19] VITALS: BP 189/69
--- NOTE | 2020-07-20 11:02 | NUR ---
CARE TEAM INDICATED THAT PT IS PROGRESSING TOWARD GOAL OF DISCHARGING HOME. PT HAD BEEN AGREEABLE WITH REFERRAL BEING SENT FOR SERVICES UPON DC. REFERRAL WAS SENT YESTERDAY TO [facility]. CM CALLED THIS AM AND THEY ARE ABLE TO ACCEPT PT FOR SERVICES. CARE TEAM INDICATING PROBABLE DC TOMORROW SATURDAY 07/21. CM NOTIFIED [facility] AND THEY INDICATED PROBABLE SOC SAT 07/23 OR SUN 07/24. PT NOTIFIED AND AGREEABLE. ORDERS WILL NEED TO BE FAXED TO THE NUMBER BELOW. CM TO CHECK IF PT HAS TRNASPORT HOME. [facility] F:
[2020-07-20 17:07] VITALS: BP 153/71
--- NOTE | 2020-07-20 20:01 | NUR ---
Received awake on bed. Due medications given as prescribed, able to swallow meds w/o difficulty. On O2 at 2lpm via nasal cannula. Vital signs stable- with elevated BP noted- on BP meds. On MS, not on telemetry; no complains and signs of chest pain, crushing sensation and heaviness. Continent of bowel and bladder- able to go to the toilet using walker, gait belt and standby assist- falls bundle in place. Assisted in ADLs. With SL at R FA- on IV antibiotics. No nausea, no vomiting and no abdominal pain noted. Pt feeling anxious- PRN meds given as prescribed. To continue monitoring patient. Pt complained of nausea- no signs of nausea noted- pt talking on her cellphone during this time- PRN pain meds given as prescribed. No vomiting noted. Possible discharge tomorrow- CM working with pt. Pt complained of body soreness, bloatedness- Dr Plata informed; pt also requesting for medical marijuana to be prescribed- Dr Plata informed. To continue monitoring patient.
[2020-07-21 08:18] VITALS: BP 169/69
[2020-07-21] MEDS ORDERED: CARAFATE 11 GM/10 M1 PO (10:34)
[2020-07-21] MEDS ORDERED: NORVASC5 MG PO (10:34)
[2020-07-21] MEDS ORDERED: ZOFRAN 4 MG ORAL4 MG PO (10:34)
[2020-07-21] MEDS ORDERED: SIMETHICON CHEW80 M1 PO (10:34)
[2020-07-21] MEDS ORDERED: ALPRAZOLAM 0.0.25 M1 PO (10:34)
[2020-07-21] MEDS ORDERED: TRAMADOL 50 MG50 MG PO (10:34)
[2020-07-21] MEDS ORDERED: PROTONIX40 M2 PO (10:36)
[2020-07-21] MEDS ORDERED: AUGMENTIN 875-1 EACH PO (10:43)
[2020-07-21 11:31] VITALS: BP 169/69
--- NOTE | 2020-07-21 11:34 | NUR ---
PT IS AOX4, WORKING WELL WITH OT/PT THIS MORNING. PT DENIES PAIN AT THIS TIME. PT RECEIVED DISCHARGE INSTRUCTIONS TO GO HOME WITH HOME HEALTH. BELONGINGS PACKED AND SENT HOME. IV D/C'D. TRANSFERRED TO CAR PER W.C.
[2020-07-25 16:24] VITALS: BP 169/69
== END 2020-07-21 12:33 | disposition home health service (06) | DRG 391 ==
LOC: ER 18:47 → EROBS 22:08 → 4W 22:08
PROVIDERS: Emergency Medicine; Nurse Practitioner Family; ADMIT Internal Medicine; ATTEND Internal Medicine
PROC: 0DB68ZX Excision of Stomach, Via Natural or Artificial Opening Endoscopic, Diagnostic (ICD-10-PCS; principal; 2020-07-18)
PROC: 0DB98ZX Excision of Duodenum, Via Natural or Artificial Opening Endoscopic, Diagnostic (ICD-10-PCS; principal; 2020-07-18)
DX: K52.9 Noninfective gastroenteritis and colitis, unspecified (principal); N17.0 Acute kidney failure with tubular necrosis; K85.90 Acute pancreatitis without necrosis or infection, unspecified; N39.0 Urinary tract infection, site not specified; K90.49 Malabsorption due to intolerance, not elsewhere classified; K25.9 Gastric ulcer, unspecified as acute or chronic, without hemorrhage or perforation; K20.90 Esophagitis, unspecified without bleeding; E78.5 Hyperlipidemia, unspecified; F32.9 Major depressive disorder, single episode, unspecified; E87.6 Hypokalemia; I12.9 Hypertensive chronic kidney disease with stage 1 through stage 4 chronic kidney disease, or unspecified chronic kidney disease; J45.909 Unspecified asthma, uncomplicated; G89.4 Chronic pain syndrome; E03.9 Hypothyroidism, unspecified; M54.9 Dorsalgia, unspecified; R53.81 Other malaise; G47.00 Insomnia, unspecified; M19.90 Unspecified osteoarthritis, unspecified site; M81.0 Age-related osteoporosis without current pathological fracture; E53.8 Deficiency of other specified B group vitamins; F41.9 Anxiety disorder, unspecified; E66.01 Morbid (severe) obesity due to excess calories; Z79.82 Long term (current) use of aspirin; Z79.899 Other long term (current) drug therapy; Z88.2 Allergy status to sulfonamides; Z87.891 Personal history of nicotine dependence; Z98.41 Cataract extraction status, right eye; Z98.42 Cataract extraction status, left eye; I69.398 Other sequelae of cerebral infarction; Z68.31 Body mass index [BMI] 31.0-31.9, adult; Z23 Encounter for immunization; Z20.828 Contact with and (suspected) exposure to other viral communicable diseases; N18.9 Chronic kidney disease, unspecified
CPT/HCPCS: 10045; 10047; 62110; 62900; 70005

== ENCOUNTER → 2021-04-20 | Outpatient (CLI) | payer OTHER ==
[~2021-04-20] MED LIST changes: +ALPRAZOLAM 0.0.25 M1 PO; +AMLODIPINE BESY10 MG PO; +ASA81BEC PO; +AUGMENTIN 875-1 EACH PO; +BENADRYL25 MG PO; +CARAFATE 11 GM/10 M1 PO; +CORAL CALCIUM1 EAC4 PO; +COZAAR 50 MG TA50 M1 PO; +DULOXETINE HCL60 MG PO; +FLONASE 0.05%50 MCG NARES; +FUROSEMIDE 20 M20 MG PO; +HYDROCHLOROTHIA25 M1 PO; +HYDROCODON-ACE1 EAC7 PO; +HYDROXYZINE HCL25 M2 PO; +IPRAT-ALBUT 0.5-3 ML INH; +LEVOTHYROXINE25 MCG PO; +LOSARTAN POTAS100 MG PO; +MAGNESIUM250 M1 PO; +MECLIZINE HCL12.5 MG PO; +MELOXICAM7.5 MG PO; +MIRALAX17 GM PO; +NYSTATIN1 EA10 TOP; +ONE-DAILY MULT1 EAC1 PO; +POTASSIUM GLUCO99 M1 PO; +PROAIR HFA8.5 GM INH; +PROBIOTIC1 EAC7 PO; +PROCHLORPERAZINE5 M2 PO; +PROTONIX40 M2 PO; +REMERON15 M2 PO; +SIMETHICON CHEW80 M1 PO; +SYSTANE COMPLET10 ML OPHTHALMIC; +TOPAMAX100 MG PO; +TRAMADOL 50 MG50 MG PO; +TRAMADOL HCL50 MG PO; +TRAZODONE HCL50 MG PO; +VITAMIN B-121000 MC2 PO; +VITAMIN D325 MC3 PO; +ZOFRAN 4 MG ORAL4 MG PO; +ZOLPIDEM TARTRA10 MG PO; +[UNRECOGNIZED DRUG - OTHER] PO; +[UNRECOGNIZED DRUG - SUPPLY] PO
[2021-04-20 13:20] LABS: URINE BILIRUBIN NEGATIVE (Negative); URINE BLOOD NEGATIVE (Negative); URINE CLARITY SL CLOUDY; URINE COLOR YELLOW; URINE GLUCOSE-RANDOM* NEGATIVE (Negative); URINE KETONES TRACE (Negative); URINE LEUKOCYTES-REFLEX TRACE (Negative); URINE PROTEIN (DIPSTICK) NEGATIVE (Negative); URINE SPECIFIC GRAVITY 1.025 (1.005-1.035)
[2021-04-20 13:26] LABS: HEMATOCRIT 41.9 % (37.0-47.0); HEMOGLOBIN 13.6 gm/dL (12.0-15.0); MCH 29.2 pg (26.0-34.0); MCHC 32.4 g/dL (28.0-37.0); MCV 90.1 fL (80.0-100.0); RBC 4.65 mil/uL (4.20-5.00); RDW 15.3 % (10.5-14.5); WBC 4.7 thou/uL (4.0-11.0)
[2021-04-20 13:33] LABS: PROTIME 10.9 Seconds (10.5-12.1)
[2021-04-20 13:37] LABS: ALBUMIN 3.8 g/dL (3.4-5.0); CALCIUM 8.9 mg/dL (8.5-10.1); CREATININE 1.2 mg/dL (0.6-1.0); POTASSIUM 3.7 mmol/L (3.5-5.1)
--- NOTE | 2021-04-20 13:37 | EKG ---
[address] [address] ELECTROCARDIOGRAM REPORT Name: ZULY JOHNSON [id number] Admission: 04/20/21 Attend Phys: Portillo Huizar MD Discharge: Date of : 44 Report #: [id number] [facility] Test Date: 2021-04-20 Test Time: 13:12:10 Pat Name: ZULY JOHNSON Department: Room: Gender: F Sizing Machine And Drier Operator: BROCK GILLETTE : 1940 Requested By: Portillo Huizar Order Number: [id number] : Jack Cortez Measurements Intervals [place] Rate: 78 P: 51 WV: 245 QRS: 68 QRSD: 96 T: 61 QT: 398 QTc: 454 Interpretive Statements Sinus rhythm Compared to ECG 07/16/2020 19:42:39 Prolonged QT interval no longer present Electronically Signed On 04-20-2021 13:37:10 CDT by Jack Cortez [email or web address] <ELECTRONICALLY SIGNED> By: Jack Cortez MD, [facility] 04/20/21 1337 1312 Jack Cortez MD, FACC /EPI
[2021-04-20 13:57] LABS: URINE NITRITE-REFLEX POSITIVE (Negative)
[2021-04-20 14:44] LABS: SQUAMOUS 4-10 Moderate /LPF (0-3); URINE WBC-REFLEX >25 Many /HPF (0-5)
[2021-04-20 14:45] LABS: BACTERIA-REFLEX >30 Many /HPF (None Seen)
[2021-04-20 14:49] LABS: URINE RBC 1-2 Rare /HPF (NONE SEEN)
== END ==
LOC: PAC 12:27
PROVIDERS: ATTEND Orthopaedic Surgery
DX: M16.11 Unilateral primary osteoarthritis, right hip (principal)

== ENCOUNTER 2021-04-25 07:11 | Inpatient (IN) | payer OTHER ==
[~2021-04-25] VITALS: Ht 162.6 cm; Wt 88.9 kg
[2021-04-25 08:43] VITALS: BP 122/61
[2021-04-25 18:54] VITALS: BP 139/66
--- NOTE | 2021-04-26 03:51 | NUR ---
ASSESSED AT START OF SHIFT. BEDSIDE REPORT DONE. PT A&OX4. IV INTACT AND FLUIDS INFUSING. PO PAIN MEDS GIVEN. ABX GIVEN. BROCK DRESSING INTACT ICE BAG IN PLACE. PT VOIDS APPROPRIATELY. ON 2L OF O2. FALL PREC IN PLACE AND CALL LIGHT AT REACH WILL CONT TO MONITOR.
[2021-04-26 05:34] VITALS: BP 183/85
[2021-04-26 08:07] VITALS: BP 145/74
--- NOTE | 2021-04-26 09:51 | NUR ---
ASSUMED PT CARE THIS AM. PT IS ALERT & ORIENTED X4. PT HAS IV SITE ON R HAND SALINE LOCKED. PT HAS BROCK DRESSING, BILATERAL THIGH HIGH PILAR SOSA, SCD. PT C/O OF PAIN AND GIVEN PAIN MEDICATION PER PT REQUEST. PT IS ON ROOM AIR AT DAY AND 3L AT NIGHT FOR SLEEP APNEA. WILL CONTINUE TO MONITOR PT. FOLLOW POC.
[2021-04-26 15:42] VITALS: BP 148/66
--- NOTE | 2021-04-26 16:20 | NUR ---
ASSESSMENT: CM REVIEWED CHART AND SPOKE WITH PATIENT. PT IS S/P RIGHT HIP REPLACEMENT. PT REPORTS THAT SHE LIVES IN AN APT ALONE. PT REPORTS HAVING ABOUT 6 STEPS WITH A RAIL TO ENTER AND NO STEPS INSIDE. PT REPORTS THAT SHE HAS HAD [facility] IN THE PAST AND ALSO BEEN TO [facility]. PT REPORTS SHE NORMALLY IS INDEPENDENT BUT DOES USE A CANE AT TIMES AND ALSO HAS A WALKER AT HOME IF NEEDED. PT REPORTS SHE WAS REALLY HOPING SHE WOULD BE ABLE TO GO HOME AT DISCHARGE RATHER THEN A SNF AND WANTS TO SEE HOW SHE DOES WITH THERAPY TOMORROW BEFORE SENDING ANY REFERRALS. PT REPORTS SHE IS ATTMEPTING TO GET A FRIEND TO STAY THE NIGHT WITH HER TO ASSIST HER IF NEEDED. CM WILL CONTINUE TO FOLLOW TO ASSIST NEEDED.
[2021-04-26 19:21] VITALS: BP 145/53
--- NOTE | 2021-04-27 02:51 | NUR ---
PT IS A/O X4 AND IS UP WITH ASSISTANCE. HOWEVER REQUESTS THE BEDPAN DUE TO INCREASED PAIN TO RIGHT HIP. PAIN MEDICATION GIVEN DIRECTED. PT CALLS OUT APPROPRIATELY FOR ASSISTANCE. VSS AFEBRILE. HS MEDICATIONS GIVEN DIRECTED. FALL PRECAUTIONS IN PLACE, CALL LIGHT IS WITHIN REACH.
[2021-04-27 07:26] VITALS: BP 132/56
--- NOTE | 2021-04-27 10:21 | NUR ---
ASSUMED PT CARE THIS AM. HAS IV SITE ON R HAND SALINE LOCKED. PT HAS BROCK DRESSING, BILATERAL PILAR HOSES THIGH HIGH AND SCD. PT USES 3L AT NIGHT AND RA AT DAY. PT C/O OF PAIN AND GIVEN PAIN MEDICATION PER PT REQUEST. PHYSICAL THERAPY WILL BE WORKING WITH PATIENT TODAY. WILL CONTINUE TO MONITOR PT. FOLLOW POC.
--- NOTE | 2021-04-27 12:13 | NUR ---
SW reviewed chart and spoke with nursing and hospitalist. Pt is progressing towards goals for discharge. Pt is s/p KHURRAM. SW met with pt at bedside to discuss discharge plan. Pt states she would like to consider post-acute placement. SW provided pt with list of SNF options. Pt requests referral to be sent to [facility], as she has been there in the past. SW asked pt to have another option, in case [facility] is full. Pt verbalized understanding. MAXIMILIANO faxed SNF referral to [facility] and left voice message for Tamar in admissions. Awaiting call back at this time. SW is following to assist as needed with discharge planning.
[2021-04-27 15:54] VITALS: BP 121/65
[2021-04-27 22:00] VITALS: BP 142/63
[2021-04-28 07:50] VITALS: BP 136/62
[2021-04-28 09:23] VITALS: BP 136/62
--- NOTE | 2021-04-28 10:44 | NUR ---
A/O X 4/ ROOM AIR. RIGHT HAND PIV SALINE LOCKED. NO TELE. BROCK DRESSING TO RIGHT HIP-NO DRAINAGE NOTED, DRY, CLEAN, AND INTACT. BILATERAL TEDS ON, WILL BE D/C TO [facility] @ 0568, NURSE CALLED REPORT @ 1009.
--- NOTE | 2021-04-28 14:12 | NUR ---
DISCHARGE NOTE: MAXIMILIANO reviewed chart and spoke [facility] nursing and ortho PA. Pt is medically stable for discharge to [facility] today. MAXIMILIANO confirmed with [facility] liaison that transportation is scheduled for 1130. Pt sleeping soundly during time of SW visit. SW updated pt's nurse and provided number for report. Discharge ppwk faxed to the facility yesterday. Chart copy requested. No additional SW needs identified at this time. SW is available to assist should needs arise.
--- NOTE | 2021-05-02 11:04 | O ---
[facility] [place] [address] [place] [address] OPERATIVE REPORT Name: ZULY JOHNSON Room #: 442-P [facility] IN M.R.#: [id number] Admission: 04/25/21 Attend Phys: Portillo Huizar MD Discharge: 04/28/21 Date of : 44 Report #: [id number] THIS REPORT FOR: cc: Emily Menard MD, Carrie W. MD Abraham,Portillo Art MD ~ DATE OF SERVICE: 04/25/2021 PREOPERATIVE DIAGNOSIS: Right hip osteoarthritis. POSTOPERATIVE DIAGNOSIS: Right hip osteoarthritis. PROCEDURE: Right total hip arthroplasty. SURGEON: Portillo Huizar M.D. PRIMER INSERTING MACHINE OPERATOR: Alisia Birmingham PA-C. INDICATION FOR PRIMER INSERTING MACHINE OPERATOR: Throughout the case, extensive retraction and manipulation of the hip was required including dislocation and reduction. This was afforded to me by my car rental sales assistant. ANESTHESIA: LMA. IMPLANTS: A [employer]hew size 8 Synergy standard offset stem, a size 50 R3 acetabular cup with 1 acetabular screw, a size 32+8 cobalt chrome head and an Accord cerclage cable for prophylactic femur fixation. ESTIMATED BLOOD LOSS: 200 mL. COMPLICATIONS: None. SPECIMENS: None. CONDITION UPON LEAVING THE OR: Stable. INDICATIONS FOR PROCEDURE: The patient is a 80-year-old female with right hip osteoarthritis. She failed conservative measures for this and after discussion with her, she elected for right total hip arthroplasty. DESCRIPTION OF PROCEDURE: Risks, benefits, alternatives, complications were discussed in detail with the patient including but not limited to risk of anesthesia, risk of damage to nerves, arteries, blood vessels, risk for infection, bleeding, leg length discrepancy, instability and need for reoperation. Informed consent was obtained from the patient. Right hip was appropriately marked in the preoperative holding area. IV Ancef was given for [facility] [address] [place] [address] OPERATIVE REPORT Name: ZULY JOHNSON Aidan Room #: 442-P [facility] IN .R.#: [id number] Admission: 04/25/21 Attend Phys: Portillo Huizar MD Discharge: 04/28/21 Date of : 42 Report #: [id number] preoperative antibiotics. She was brought to the operating room and placed in supine position on the operating room table. LMA anesthesia was induced without complications. She was then placed in the left lateral decubitus position with the right hip uppermost. Right hip and lower extremity were then prepped and draped in normal sterile fashion. Timeout was performed properly identifying the patient, procedure as well as the instrumentation and implants. All in the operating room in agreement. Standard posterior approach to the hip was made with 10 blade through the skin. Dissection was taken down to fascia with Bovie cautery and Benitez elevator was used to clean off the fascia. Fresh 10 blade was used to make a fascial incision. This was taken proximally and distally with curved Tamayo scissor. Charnley retractor was placed. Trochanteric bursa was taken down with Bovie cautery. Piriformis tendon was identified, tagged and taken down with Bovie cautery. Short external rotators were also taken down with Bovie cautery. Capsulotomy was made and capsule ends were tagged for later repair. Hip was dislocated and there was extensive osteoarthritic change of the femoral head. Femoral neck cut was made 1 cm proximal to the lesser trochanter based on preoperative templating and the femoral head was removed. Deep acetabular retractors were placed. Labrum was removed sharply. Pulvinar was removed with Bovie cautery. Acetabulum was then sequentially reamed up to a size 50, at which point there was excellent bleeding cancellous bone. A size 49 trial cup was placed, found to have a good fit. The final size 50 R3 acetabular cup was placed and seated. One acetabular screw was placed for backup fixation and a polyethylene liner for a 32 head was placed. Attention was then turned to the femur. This was reamed and broached up to a size 8, at which point the size 8 broach was stable, was trialed with a standard offset neck and a 32+0 head. Hip was reduced, taken through range of motion, found to be stable, found to be somewhat short on the right compared to left. It was felt we could make up for this with the final implant. Broach was removed. The single Accord cerclage cable was placed around the proximal femur for prophylactic fixation and a final size 8 standard offset Synergy press-fit stem was placed and seated. This was then trialed with a 32+4 and 32+8 head, +8 neck length had the best stability and equal leg lengths. Hip was dislocated and the trial head was removed and final size 32+8 cobalt chrome head was placed. Hip was reduced, taken through range of motion, found to be stable, found to have equal leg lengths. Hip was thoroughly irrigated with normal saline. Periarticular injection consisting of morphine, ropivacaine, epinephrine, Toradol was placed around the hip joint capsule. A gram of vancomycin was placed deep in the joint. The capsule and piriformis were repaired with 0 FiberWire. Fascia was closed with 0 Vicryl. Skin was closed with 2-0 Vicryl, 3-0 Monocryl. Dermabond and a BROCK dressing was applied. The patient tolerated this procedure well and went to recovery room under care of anesthesia postoperatively. <ELECTRONICALLY SIGNED> By: Portillo Huizar MD 05/02/21 1104 1012 1119 Portillo Huizar MD /nt
== END 2021-04-28 12:25 | DRG 470 ==
LOC: OR 07:11 → 4S 16:24 → OR 16:40 → 4S 04-28 12:25
PROVIDERS: ADMIT Orthopaedic Surgery; ATTEND Orthopaedic Surgery
PROC: 0SR902A Replacement of Right Hip Joint with Metal on Polyethylene Synthetic Substitute, Uncemented, Open Approach (ICD-10-PCS; principal; 2021-04-25)
DX: M16.11 Unilateral primary osteoarthritis, right hip (principal); Z20.822 Contact with and (suspected) exposure to COVID-19; Z88.2 Allergy status to sulfonamides
CPT/HCPCS: 10102; 50010; 50101; 50382; 50414; 53000; 53078; 53367; 54118; 56524; 56527; 56528; 56530; 57095; 57103; 58947; 62110; 62900; 70005

== ENCOUNTER 2021-05-16 17:59 | Inpatient (IN) | payer OTHER ==
[~2021-05-16] VITALS: Ht 162.6 cm; Wt 87.1 kg
--- NOTE | ~2021-05-16 | EMS ---
[address] [address] EMS Patient Care Report Name: ZULY JOHNSON Room #: REG JULIANNE Wesley#: [id number] Admission: 05/16/21 Attend Phys: Discharge: Date of : 44 Report #: [id number] THIS REPORT FOR: //name// Report Transmitted: 05/16/2021 17:46 EMS Care Summary [facility] MED-ACT Incident [id number] @ 05/16/2021 17:16 Incident Location [address] [place] [address] Patient ZULY JOHNSON Female, 89 Years 1919-05-16 Patient Address [address] [place] [address] Patient History Chronic Obstructive Pulmonary Disease (COPD),Hypertension (HTN),Hyperlipidemia, Patient Allergies Sulfa, Patient Medications Morphine, Oxygen, Chief Complaint confusion Disposition Transported No Lights/[place] Dispatch Reason Unconscious/Fainting Transported To [facility] Narrative Arrived to find pt lying in the cazares of her apartment building alert but confused. Pt was found by her neighbor with confusion. Pt was unsure how she [facility] [address] [place] [address] EMS Patient Care Report Name: ZULY JOHNSON Room #: REG ER Guerita.#: [id number] Admission: 05/16/21 Attend Phys: Discharge: Date of : 44 Report #: [id number] got there or how long she was on the floor. Pt denied, pain, difficulty breathing, nausea, falling, neck or back pain. Pt was confused to place time and events of the day. Neighbor stated the pt is normally alert and oriented. No sign of trauma found on exam. Pt was carried to the cot on the stair chair and placed on the cot in the position of comfort. En route to the ER pt rested without change. Upon arrival pt was taken to RM 1 and care transferred to staff attorney with report. Initial Vitals @17:40P: 74,SpO2: 79,AK Suspected: false @17:23P: 58,SpO2: 75, @17:42P: 83,SpO2: 73, @17:34P: 79,SpO2: 90, @17:52P: 73,R: 18,BP: 127/66,Pain: 0/10,GCS: 14,SpO2: 98,Revised Trauma: 12, @17:23P: 80,R: 18,BP: 127/67,Pain: 0/10,GCS: 14,Temp: 97.8F,Glucose: 124,SpO2: 91,Revised Trauma: 12, Impression Confusion/Delirium Timeline 17:14,Call Received 17:14,Psap Call 17:16,Dispatched 17:16,En Route 17:20,On Scene 17:22,At Patient 17:23,BP: / M,PULSE: 58,RR: R,SPO2: 75 Ox,ETCO2: ,BG: ,PAIN: ,GCS: , 17:23,BP: 127/67 M,PULSE: 80,RR: 18 R,SPO2: 91 Ox,ETCO2: ,B,PAIN: 0,GCS: 14, 17:34,BP: / M,PULSE: 79,RR: R,SPO2: 90 Ox,ETCO2: ,BG: ,PAIN: ,GCS: , 17:40,BP: / M,PULSE: 74,RR: R,SPO2: 79 Ox,ETCO2: ,BG: ,PAIN: ,GCS: , 17:42,BP: / M,PULSE: 83,RR: R,SPO2: 73 Ox,ETCO2: ,BG: ,PAIN: ,GCS: , 17:44,Depart Scene 17:52,BP: 127/66 M,PULSE: 73,RR: 18 R,SPO2: 98 Ox,ETCO2: ,BG: ,PAIN: 0,GCS: 14, 17:55,At Destination 18:14,Call Closed Disclaimer v1.1 Copyright 2020 [employer] This EMS Care Summary contains data elements from the applicable legal record (which may be displayed differently). It is designed to provide pertinent information for the following purposes: continuity of care, clinical quality, and state data reporting. The complete legal record is available to ED staff [address] [address] EMS Patient Care Report Name: ZULY JOHNSON Room #: REG ER Maryjane#: [id number] Admission: 05/16/21 Attend Phys: Discharge: Date of : 44 Report #: [id number] and administrators of the receiving hospital in [facility]'s Patient Tracker. All data is provided "as is."
[2021-05-16 18:00] VITALS: BP 129/55
[2021-05-16 18:25] LABS: ABSOLUTE NEUTROPHILS 2.7 thou/uL (1.4-8.2); BASOPHILS 1.4 % (0.0-2.0); EOSINOPHILS 4.4 % (0.0-3.0); HEMATOCRIT 31.2 % (37.0-47.0); HEMOGLOBIN 10.3 gm/dL (12.0-15.0); LYMPHOCYTES 26.3 % (24.0-44.0); MCH 28.8 pg (26.0-34.0); MCHC 32.9 g/dL (28.0-37.0); MCV 87.4 fL (80.0-100.0); MONOCYTES 12.4 % (1.0-8.0); PLATELET COUNT 323 thou/uL (150-400); POLYS 55.5 % (36.0-66.0); RBC 3.57 mil/uL (4.20-5.00); RDW 14.4 % (10.5-14.5); WBC 4.9 thou/uL (4.0-11.0)
[2021-05-16 18:30] LABS: CALCIUM 8.9 mg/dL (8.5-10.1); POTASSIUM 3.3 mmol/L (3.5-5.1)
[2021-05-16 18:33] LABS: URINE BLOOD NEGATIVE (Negative); URINE CLARITY CLEAR; URINE COLOR YELLOW; URINE GLUCOSE-RANDOM* NEGATIVE (Negative); URINE KETONES TRACE (Negative); URINE LEUKOCYTES-REFLEX TRACE (Negative); URINE NITRITE-REFLEX NEGATIVE (Negative); URINE PROTEIN (DIPSTICK) NEGATIVE (Negative)
[2021-05-16] MEDS ORDERED: BISACODYL10 MG RECTAL (18:34)
[2021-05-16 18:35] LABS: ALBUMIN 3.3 g/dL (3.4-5.0); TOTAL BILIRUBIN 0.7 mg/dL (0.2-1.0); TOTAL PROTEIN 6.8 g/dL (6.4-8.2)
[2021-05-16] MEDS ORDERED: CALCIUM 600 +1 EAC8 PO (18:38)
[2021-05-16 18:39] LABS: ICTOTEST (BILI CONFIRMATORY) Negative (Negative); URINE BILIRUBIN NEGATIVE (Negative)
[2021-05-16 21:45] LABS: AMP/METHAMP Negative (Negative); BARBITURATES Negative (Negative); BENZODIAZEPINES Negative (Negative); COCAINE Negative (Negative); METHADONE Negative (Negative); OPIATES POSITIVE (Negative); PCP Negative (Negative)
[2021-05-17 05:31] LABS: HEMATOCRIT 32.2 % (37.0-47.0); HEMOGLOBIN 10.9 gm/dL (12.0-15.0); MCH 29.4 pg (26.0-34.0); MCHC 33.8 g/dL (28.0-37.0); MCV 86.8 fL (80.0-100.0); RBC 3.71 mil/uL (4.20-5.00); RDW 14.1 % (10.5-14.5); WBC 4.1 thou/uL (4.0-11.0)
[2021-05-17 05:46] LABS: ALBUMIN 3.3 g/dL (3.4-5.0); CALCIUM 8.8 mg/dL (8.5-10.1); CREATININE 1.7 mg/dL (0.6-1.0); POTASSIUM 3.9 mmol/L (3.5-5.1); TOTAL BILIRUBIN 0.6 mg/dL (0.2-1.0); TOTAL PROTEIN 7.2 g/dL (6.4-8.2)
[2021-05-17 05:48] LABS: CHOLESTEROL 149 mg/dL (<200); HDL CHOLESTEROL 41 mg/dL (>40); LDL CHOLESTEROL 82 mg/dL (<100); TC:HDL 3.6 Ratio (Not establshd); TRIGLYCERIDE 133 mg/dL (<150); VLDL 27 mg/dL (<40)
[2021-05-17 06:03] LABS: SERUM ASSESSMENT Clear
[2021-05-17 06:51] VITALS: BP 126/59
[2021-05-17 07:57] VITALS: BP 143/63
[2021-05-17 08:25] VITALS: BP 161/77
[2021-05-17 11:44] VITALS: BP 145/63
--- NOTE | 2021-05-17 15:13 | EKG ---
[address] [address] ELECTROCARDIOGRAM REPORT Name: ZULY JOHNSON Room #: 363-P ADM IN M.R.#: [id number] Admission: 05/16/21 Attend Phys: Eusebio Byrne MD Discharge: Date of : 44 Report #: [id number] [facility] ED Test Date: 2021-05-16 Test Time: 18:14:54 Pat Name: ZULY JOHNSON Department: Room: 363 Gender: F Metallurgical Tester: elisabet : 1940 Requested By: Eusbeio Byrne Order Number: [id number] MD: Jack Cortez Measurements Intervals Hudson Rate: 74 P: 44 NC: 249 QRS: 63 QRSD: 103 T: -21 QT: 426 QTc: 473 Interpretive Statements Sinus rhythm Prolonged NC interval Nonspecific T abnormalities, inferior leads Baseline wander in lead(s) V1,V4,V6 Compared to ECG 04/20/2021 13:12:10 First degree AV block now present T-wave abnormality now present Electronically Signed On 05-17-2021 15:13:39 CDT by Jack Cortez [email or web address] <ELECTRONICALLY SIGNED> By: Jack Cortez MD, FACC 05/17/21 151 13 13 Jack Cortez MD, [facility] /EPI
[2021-05-17 15:30] VITALS: BP 137/61
--- NOTE | 2021-05-17 17:05 | NUR ---
ADMISSION NOTE: ADMITTED TO 3W, ROOM 363. PT ALERT AND ORIENTED TO PERSON AND PLACE. PT CONTINUES TO HAVE SOME CONFUSION, BARELY REMEMBER HOW SHE GOT HERE. SHE STATED SHE NORMALLY DRINKS A COUPLE SHOTS OF VODKA A DAY, HER LAST DRING WAS YESTERDAY. DR. SANTOYO MADE AWARE, ALCOHOL WITHDRAWAL PROTOCOL IN PLACE. [facility] ASSESSMENT IN PLACE. ADMISSION AND ASSESSMENT COMPLETED. SKIN INTACT. CALLED PT DAUGHTER TO HELP WITH PT HISTORY AND BACKGROUNG. SEIZURE AND FALL PRECAUTIONS IN PLACE.
[2021-05-17 19:34] VITALS: BP 133/61
[2021-05-18 01:03] VITALS: BP 141/67
[2021-05-18 04:17] VITALS: BP 141/69
[2021-05-18 07:36] VITALS: BP 155/75
--- NOTE | 2021-05-18 07:56 | NUR ---
PT EXTREMELY AGITATED THIS MORNING, HAS TAKEN OUT HER IV AND IS STATING "I NEED TO LEAVE, MY DOG NEEDS ME" PT ALSO HAS VISIBLE TREMORS, AND CONFUSION (ALERT TO SELF).
--- NOTE | 2021-05-18 08:52 | NUR ---
RESTRAINTS APPLIED AT 0814. PT WAS CONFUSED, EXTREMELY AGITATED, AND COMBATIVE. PT PULLED OUT IV, UNWILLING TO TAKE PO MEDICATIONS, AND UNWILLING TO ALLOW ANOTHER IV START. PT STATED SHE "WANTED TO GO HOME IMMEDIATELY" AND DID CALL [facility] TRAN[facility] CHILD SEAT DIV[facility].
--- NOTE | 2021-05-18 09:17 | NUR ---
THIS RN UPDATED LISTED DPOA, EDITH, TO PT RESTRAINTS. ANGEL THEN WENT INTO A LONG CONVERSATION ON HOW SHE IS REQUESTING AT THIS TIME TO WITHDRAW FROM BEING PT DPOA DUE TO PT "MAKES HORRIBLE DECISIONS" "I HAVE LENT HER THOUSANDS OF DOLLARS AND PROVIDED THOUSANDS OF HOURS OF MY LIFE" AND PT "HAS RECENTLY PAWNED HER JEWELRY AND SENT MONEY TO A FACEBOOK SCAMMER" THIS RN THEN CALLED PT DAUGHTER, ELIEZER, TO UPDATE TO PT RESTRAINTS. ELIEZER STATES SHE IS AWARE EDITH DOES NOT WANT TO BE DPOA AND IS WILLING TO BE CONTACTED IN HER PLACE. SHE FURTHER STATES OTHER LISTED PERSON, KELLEY, SHOULD NOT BE LISTED A CONTACT SHE IS 86YO AND HAS HER OWN HEALTH ISSUES. DTR ELIEZER STATES THAT SHE LIVES IN [place], HAS NOT BEEN TO [place] IN QUITE SOME TIME (MAYBE 10 YEARS). SHE STATES PT IS "A HEADCASE WITH BAD DECISION MAKING AND MANIPULATIVE BEHAVIORS" ELIEZER STATES SHE IS UNSURE IF PT IS DRIVING, BUT DOES SUSPECT PT IS DAILY VODKA DRINKING. DR SANTOYO UPDATED. PSYCH CONSULT PLACED.
--- NOTE | 2021-05-18 09:22 | NUR ---
PROGRESS PT DROWSY, TREMORING SEVERELY AT FIRST CIWA SCORE WAS 22 BUT DOWN TO 11 TO 12 AFTER SOME TIME. PT FIGHTING SLEEP ALL NIGHT CALM AND COOPERATIVE FOR THE MOST PART PULLED ONE IV OUT BUT HAD ONE IN THE RAC THAT WAS VIABLE. UP WITH 1 TO BSC VOIDING QS CONTINUE POC.
[2021-05-18 10:19] LABS: HEMATOCRIT 30.2 % (37.0-47.0); HEMOGLOBIN 9.9 gm/dL (12.0-15.0); MCH 28.7 pg (26.0-34.0); MCHC 32.9 g/dL (28.0-37.0); MCV 87.3 fL (80.0-100.0); RBC 3.45 mil/uL (4.20-5.00); RDW 14.6 % (10.5-14.5); WBC 5.5 thou/uL (4.0-11.0)
[2021-05-18 10:44] LABS: CALCIUM 8.5 mg/dL (8.5-10.1); CREATININE 1.2 mg/dL (0.6-1.0); MAGNESIUM 1.6 mg/dL (1.8-2.4); POTASSIUM 3.1 mmol/L (3.5-5.1); TOTAL BILIRUBIN 0.3 mg/dL (0.2-1.0); TOTAL PROTEIN 6.3 g/dL (6.4-8.2)
[2021-05-18 11:51] VITALS: BP 169/76
--- NOTE | 2021-05-18 16:38 | NUR ---
INITIAL ASSESSMENT: Received consult. MAXIMILIANO reviewed chart and spoke with nursing and attending physician. EMS was called by pt's neighbor due to pt sitting outside and being confused. Pt was recently discharged to [facility] on 04/28/2021 after hip surgery. Pt was discharged home with [facility] on 05/04/2021. Pt placed in restraints this morning due to agitation. Psych consulted. CT ordered. MAXIMILIANO spoke with pt's dtr, Francine, via phone. Introduced role of MAXIMILIANO. Francine states that pt lives alone in an apt. Pt has been independent with ADLs. Pt with hx of ETOH use. Pt drinks vodka. Francine states she is unsure about the amount of ETOH that pt has consumed. Pt appointed a friend, Namrata Mackenzie, as her DPOA in 2017. Per Francine, Namrata no longer wants to be pt's DPOA. Pt is . Francine is her only child. Francine lives in [place] and is willing to assist with making decisions on pt's behalf if needed. Pt's dtr with multiple questions regarding plan of care and discharge needs. Pt's dtr has requested to speak with a physician. SW discussed need for psych eval and also therapy evals to determine discharge needs. Pt's dtr states that she would prefer that pt go to [facility] if placement is needed. Pt is also in the process of looking at alternate living options and possibly AL facilities. MAXIMILIANO updated contact info for pt. Francine requests that pt's neighbor, Pee, be added to contact list. Pee is in ER nurse and has been in contact with Francine. MAXIMILIANO contacted risk mgmt regarding DPOA documentation. MAXIMILIANO updated Namrata with [facility]. MAXIMILIANO is following to assist as needed with discharge planning.
--- NOTE | 2021-05-18 17:20 | NUR ---
AT 1600 ROUNDS, PT APPEARED SLEEPING, DID NOT ANSWER QUESTION FROM THIS RN. PT THEN WAS FOUND WITH IV DC'D AND RESTRAINTS OFF. PT WAS VERY COMBATIVE BUT WAS ABLE TO BE RESTRAINED AGAIN. PT STATUS DISCUSSED WITH DR VALDIVIA. ROMO ON RECOMMENDATIONS FROM DR GARCIA
--- NOTE | 2021-05-18 17:59 | NUR ---
CT HAS NO TRANSPORTATION. DUE TO ACUTITY OF PT'S, UNABLE TO TRANSFER TO CT. SPOKE WITH CT AT 1715 AND THEY WERE UNABLE TO TAKE PT AT THIS TIME. CT STATED THEY WOULD CALL 3W WHEN THEY ARE AVAILABLE TO TAKE PT DOWN TO CT.
[2021-05-18 20:14] VITALS: BP 158/78
[2021-05-18 21:12] LABS: ABSOLUTE NEUTROPHILS 3.5 thou/uL (1.4-8.2); BASOPHILS 1.3 % (0.0-2.0); EOSINOPHILS 1.7 % (0.0-3.0); HEMATOCRIT 33.7 % (37.0-47.0); HEMOGLOBIN 10.9 gm/dL (12.0-15.0); LYMPHOCYTES 29.6 % (24.0-44.0); MCH 28.5 pg (26.0-34.0); MCHC 32.3 g/dL (28.0-37.0); MCV 88.2 fL (80.0-100.0); MONOCYTES 8.7 % (1.0-8.0); PLATELET COUNT 291 thou/uL (150-400); POLYS 58.7 % (36.0-66.0); RBC 3.83 mil/uL (4.20-5.00); RDW 14.7 % (10.5-14.5); WBC 5.9 thou/uL (4.0-11.0)
[2021-05-19] VITALS (7 sets, daily range): BP systolic 158–173; BP diastolic 80–86
--- NOTE | 2021-05-19 00:12 | NUR ---
CT CALLED AT 2100 ABOUT BRINGING PT DOWN WHILE IN ANOTHER PT ROOM. CALLED BACK AND LEFT MESSAGE AT 2200. PT DID NOT MAKE IT DOWN TO CT THIS EVENING.
--- NOTE | 2021-05-19 06:12 | NUR ---
PT ALERT AND ORIENTED X 2. PT EXPERIENCING MILD HALLUCINATIONS. PT'S CIWA IS 12. ADMINISTERED HALODOL FOR AGITATION Q4. PT ON RESTRAINTS FOR COMBATIVENESS. Q2 CHECKS FOR RESTRAINTS. PT HAS A PURWICK IN PLACE. FALL PRECAUTIONS IN PLACE. WILL CONTINUE TO MONITOR.
[2021-05-19 06:54] LABS: HEMATOCRIT 32.8 % (37.0-47.0); HEMOGLOBIN 10.8 gm/dL (12.0-15.0); MCH 28.6 pg (26.0-34.0); MCHC 32.9 g/dL (28.0-37.0); MCV 86.7 fL (80.0-100.0); RBC 3.79 mil/uL (4.20-5.00); RDW 14.6 % (10.5-14.5); WBC 5.1 thou/uL (4.0-11.0)
[2021-05-19 07:15] LABS: CALCIUM 8.4 mg/dL (8.5-10.1); MAGNESIUM 1.3 mg/dL (1.8-2.4); POTASSIUM 3.1 mmol/L (3.5-5.1)
--- NOTE | 2021-05-19 14:34 | NUR ---
SW reviewed chart and spoke with nursing and attending physician. Pt is progressing towards goals for discharge. Pt remains in restraints until cleared by psych. Head CT ordered today. Awaiting input from psych at this time regarding discharge. PT/OT evnate completed today. SW met with pt at bedside. Introduced role of SW. Pt is alert/orientated. Pt remembered SW from previous hospitalization. Pt reports she is feeling better and is ready to discharge home. SW discussed discharge disposition. Pt feels that she will be okay at home. SW explained that HH services will be resumed. Pt is agreeable with plan. Pt's PCP is Dr. Emily Menard. Pt states she will have transportation home when discharged. Pt gave SW consent to speak with her dtr, Francine, about d/c plans. SW spoke with Francine at length regarding discharge plan and eventual living situation. SW encouraged pt's dtr to review [employer] website for local correction communities. Pt's dtr is agreeable with pt discharge home with services. RN/PT/OT/SW services requested. Pt's dtr states that pt will have transportation home. Cab voucher can be provided to pt if needed. Pt is able to complete a new DPOA document prior to discharge if psych feels pt has the capacity. Nursing to contact spiritual care or rooming house inspector to complete healthcare DPOA ppwk. SW faxed HH referral to [facility] . Confirmed with [facility] in intake, that info was received and they can accept pt on service. Notified [facility] of request for HH SW. Contact info for HH placed in pt's discharge summary. Discharge orders/summary will need to be faxed to when available. SW is available to assist as needed with discharge planning. [facility] --
--- NOTE | 2021-05-19 18:10 | NUR ---
PT IS ALERT AND ORIENTED X4. RA AND SR ON THE MONITOR. PT HAS SEVERE HAND TREMORS. DR. GARCIA AND DR. SANTOYO AGREED TO DISCONTINUE RESTRAINTS ON PT. PT IS CONCERNED ABOUT HER DOG AND WANTING TO GO HOME. NO HALLUCINATIONS AT THIS TIME. PT HAS COMPLAINT OF BACK PAIN. REPOSITIONED PT AND GAVE PRN TYLENOL. PT CALM AND COOPERATIVE AT THIS TIME. WILL CONTINUE TO MONITOR.
[2021-05-20 00:12] VITALS: BP 152/75
--- NOTE | 2021-05-20 01:51 | NUR ---
PT ALERT AND ORIENTED X4. FOLLOWS COMMANDS. SHE HAS BEEN APPROPRIATE. CIWA 3. MILD TREMORS NOTED. MELATONIN GIVEN FOR SLEEP. SHE HAS BEEN SLEEPING. NO S/S DISTRESS PRESENTLY. BED DOWN CALL LIGHT IN REACH. BED ALARM IS ON. BED IS PADDED.
[2021-05-20 03:59] VITALS: BP 148/76
[2021-05-20 05:35] LABS: HEMATOCRIT 36.1 % (37.0-47.0); HEMOGLOBIN 11.9 gm/dL (12.0-15.0); MCH 28.6 pg (26.0-34.0); MCHC 32.8 g/dL (28.0-37.0); MCV 87.1 fL (80.0-100.0); RBC 4.15 mil/uL (4.20-5.00); RDW 14.5 % (10.5-14.5); WBC 5.7 thou/uL (4.0-11.0)
[2021-05-20 05:51] LABS: CALCIUM 8.9 mg/dL (8.5-10.1); CREATININE 0.9 mg/dL (0.6-1.0); MAGNESIUM 1.7 mg/dL (1.8-2.4); POTASSIUM 3.7 mmol/L (3.5-5.1)
[2021-05-20 07:58] VITALS: BP 132/58
--- NOTE | 2021-05-20 08:11 | NUR ---
PT ALERT AND ORIENTED X4. THIS AM. VSS AEBRILE. NO C/O PAIN THIS AM. CIWA UNCHANGED 3. + TREMORS. MELATONIN GIVEN TONIGHT FOR SLEEP. NO S/S SZ ACTIVITY NOTED TONIGHT.
[2021-05-20 08:17] VITALS: BP 132/58
[2021-05-20] MEDS ORDERED: CEFUROXIME500 MG PO (08:55)
--- NOTE | 2021-05-20 10:32 | NUR ---
PT IS ALERT AND ORIENTED X4. SR ON THE MONIOR AND ROOM AIR. PT DENIES ANY COMPLAINTS OF PAIN OR DISCOMFORT AT THIS TIME. REVIEWED DISCHARGE INSTRUCTIONS WITH PT. PT VERBALIZED UNDERSTANDING. PROVIDED NUMBER FOR HOME HEALTH AGENCY.
--- NOTE | 2021-05-20 10:52 | NUR ---
PT TRANSPORTED TO EXIT VIA WHEELCHAIR. PT HAS CLOTHES AND CELL PHONE WITH HER. PT LEFT VIA CAB TO RESIDENCE.
--- NOTE | 2021-05-20 11:01 | NUR ---
PT DISCHARGING TODAY TO HOME WITH [facility] FAXED DC ORDERS/KAMRONY TO SPOKE WITH DAYNA AT [facility] SHE RECEIVED ORDERS AND WILL ARRANGE VISITS WITH PT. UNIT RN NOTIFIED OF DC ORDERS FAXED.
== END 2021-05-20 11:00 | disposition home health service (06) | DRG 193 ==
LOC: ER 17:59 → EROBS 20:00 → 3W 20:00
PROVIDERS: Emergency Medicine; Nurse Practitioner; Nurse Practitioner Family; ADMIT Internal Medicine; ATTEND Internal Medicine
DX: J18.9 Pneumonia, unspecified organism (principal); J96.01 Acute respiratory failure with hypoxia; G92.9 Unspecified toxic encephalopathy; N17.0 Acute kidney failure with tubular necrosis; F10.139 Alcohol abuse with withdrawal, unspecified; E86.0 Dehydration; Z20.822 Contact with and (suspected) exposure to COVID-19; G47.33 Obstructive sleep apnea (adult) (pediatric); Z86.73 Personal history of transient ischemic attack (TIA), and cerebral infarction without residual deficits; K21.9 Gastro-esophageal reflux disease without esophagitis; F41.9 Anxiety disorder, unspecified; F32.9 Major depressive disorder, single episode, unspecified; E03.9 Hypothyroidism, unspecified; I10 Essential (primary) hypertension; Z88.2 Allergy status to sulfonamides; Z79.899 Other long term (current) drug therapy; R41.0 Disorientation, unspecified
CPT/HCPCS: 10879